=== PATIENT | female | born 1990 | race American Indian/Alaskan Native ===

== ENCOUNTER 2017-01-17 20:16 | Outpatient (CLI) | payer MEDICAID ==
[2017-01-17 20:34] VITALS: BP 120/61
[2017-01-17] MEDS ORDERED: LACTATED RINGERS 1,000 ML IV ONE (20:40)
[2017-01-17] MEDS ORDERED: LACTATED RINGERS 1,000 ML ONE (20:43)
[2017-01-17 21:09] LABS: Bilirubin,Urine NEG (Negative); Blood,Urine NEG (Negative); Ketones,Urine NEG (Negative); Leukocyte Esterase,Urine NEG (Negative); Nitrite,Urine NEG (Negative); Protein,Urine <15 mg/dL mg/dL (Negative); Urobilinogen,Urine < 2.0 mg/dL (<2.0)
[2017-01-17] MEDS ORDERED: TYLENOL PO ONE (21:30)
== END 2017-01-17 21:50 | disposition home or self-care (01) ==
LOC: TRG 20:16
PROVIDERS: ATTEND Obstetrics & Gynecology
DX: O62.9 Abnormality of forces of labor, unspecified (principal); Z3A.35 35 weeks gestation of pregnancy
CPT/HCPCS: 81001; 96360; J7120

== ENCOUNTER 2017-01-19 00:11 | Outpatient (CLI) | payer MEDICAID ==
[2017-01-19] MEDS ORDERED: LACTATED RINGERS 1,000 ML ONE (01:47)
[2017-01-19] MEDS ORDERED: LACTATED RINGERS 500 ML IV ONE (02:25)
--- NOTE | 2017-01-19 02:55 | Event Note ---
Date: 01/19/17 This patient presents complaining of uterine contractions. States she was informed yesterday that her baby was breech. She was evaluated 01/17/2017 at [facility] for uterine contractions where she was found to be closed thick and high. Today patient complains of contractions again. States she is only had 4 glasses of water today. She is resting comfortably no obvious evidence of distress. Cervix was closed thick and high. heart tracing was category 1. The initial toco that was placed did not appear to be functioning well and was changed to a different toco. Will allow patient home if no contractions. She's already received 1 L of IV fluid.
--- NOTE | 2017-01-19 02:59 | Discharge Summary ---
Providers - Providers Date of discharge: 01/19/17 Attending physician: CRYSTAL LLOYD Primary care physician: CRYSTAL LLOYD Hospitalization Condition: Good Disposition: DC-01 TO HOME OR SELFCARE Core Measure Documentation - Palliative Care Palliative Care/ Comfort Measures: Not Applicable - Core Measures Any of the following diagnoses?: none Exam - Constitutional Vitals: Temp Pulse Resp BP Pulse Ox 92 H 97 01/19/17 02:46 01/19/17 02:46 Plan Activity: other (no sex. No exercising. No lifting greater than 25 pounds nor standing for more than 2 hours without.) Weight Bearing Status: Non-Weight Bearing Diet: regular Special Instructions: no heavy lifting Follow up with: NORRIS VANESSA CNM [Advanced Practice Nurse] - 01/23/17 11:00 am ( Gerry)
== END 2017-01-19 03:40 | disposition home or self-care (01) ==
LOC: TRG 00:11
PROVIDERS: ATTEND Obstetrics & Gynecology
DX: O62.9 Abnormality of forces of labor, unspecified (principal); O47.03 False labor before 37 completed weeks of gestation, third trimester; Z3A.36 36 weeks gestation of pregnancy
CPT/HCPCS: 59025; 96360; 96361; J7120

== ENCOUNTER 2017-02-01 10:02 | Outpatient (CLI) | payer MEDICAID ==
[2017-02-01 11:50] VITALS: BP 115/75
[2017-02-01] MEDS ORDERED: VISTARIL PO PRN (11:50)
[2017-02-01] MEDS ORDERED: LACTATED RINGERS 1,000 ML IV SCH (12:00)
== END 2017-02-01 12:38 | disposition home or self-care (01) ==
LOC: TRG 10:02
PROVIDERS: ATTEND Obstetrics & Gynecology
DX: O47.1 False labor at or after 37 completed weeks of gestation (principal); Z3A.38 38 weeks gestation of pregnancy
CPT/HCPCS: Q0177

== ENCOUNTER 2021-02-23 06:14 | Inpatient (IN) | payer MEDICAID ==
[2021-02-23] MEDS ORDERED: LACTATED RINGERS 1,000 ML IV SCH (06:30)
[2021-02-23] MEDS ORDERED: LACTATED RINGERS 500 ML IV ONE (06:30)
[2021-02-23] MEDS ORDERED: BETAMET ACET/BETAMET NA PH 6 MG/ML INJ 5 ML MDV IM ONE ×2 (06:41→19:25)
--- NOTE | 2021-02-23 06:45 | History and Physical Report ---
History of Present Illness Date of examination: 02/23/21 Chief complaint: vaginal bleeding History of present illness: 30-year-old at 30w4d (CHERIE 05/01/21) [facility] in [place], [place] c/b Seizure d/o on Keppra (no recent seizures) send from the EMS with heavy vaginal bleeding that started at 5 AM with blood into the toilet bowl and on the pad. When arriving to the hospital no further blood was on the current peripad without active vaginal bleeding. Patient reports active fetus without leakage of fluid. Denies prior history of vaginal bleeding. Denies PIH symptoms. Past History Past Medical History: seizure (on meds, no recent seizures) Past Surgical History: section (x2) Family/Genetic History: none Social history: no significant social history - Obstetrical History Expected Date of Delivery: 05/01/21 Actual Gestation: 30 Week(s) 3 Day(s) : 5 Para: 4 Hx # Term Pregnancies: 4 Number of Living Children: 4 Medications and Allergies Allergies Allergy/AdvReac Type Severity Reaction Status Date / Time No Known Allergies Allergy Verified 12/15/14 04:50 Home Medications Medication Instructions Recorded Confirmed Last Taken Type levETIRAcetam [Keppra TAB] 500 mg PO BID 30 Days tablet 12/15/14 02/07/17 02/06/17 20:30 Rx Ferrous Sulfate [Feosol 325 MG tab] 325 mg PO BID #60 tablet 02/07/17 Unknown Rx Folic Acid [Folvite] 1 mg PO QDAY 02/07/17 02/07/17 02/07/17 History Ibuprofen [Motrin 800 MG tab] 800 mg PO Q6H PRN #30 tablet 02/07/17 Unknown Rx Vit-Fe Fumar-FA [ 1 tab PO QDAY 02/07/17 02/07/17 02/07/17 History Vitamin] oxyCODONE /ACETAMINOPHEN [Percocet 1 - 2 tab PO Q4H PRN #30 tablet 02/07/17 Unknown Rx 5/325 mg] Active Meds: Active Medications Betamethasone Acet/Betameth SodPhos (Betamet Acet/Betamet Na Ph 6 Mg/Ml Inj 5 Ml Mdv) 12 mg IM Q24HR DEYSI Lactated Ringer's (Lactated Ringers) 500 mls @ 999 mls/hr IV BOLUS ONE Stop: 02/23/21 07:00 Lactated Ringer's (Lactated Ringers) 1,000 mls @ 125 mls/hr IV DIRECT DEYSI Terbutaline Sulfate (Terbutaline 1 Mg/1 Ml Inj) 0.25 mg SUB-Q Q20MIN DEYSI Stop: 02/25/21 07:01 Review of Systems All systems: negative (expect HPI) - Physical Exam Abdomen: Positive: normal appearance, soft, normal bowel sounds Genitourinary (Female): Positive: other (blood at perineum, no active bleeding) Uterus: Positive: enlarged - Obstetrical FHR: category 1 Uterine Contraction Monitor Mode: External Results All other labs normal. Assessment and Plan - Patient Problems (1) Vaginal bleeding during Current Visit: Yes Status: Acute Plan to address problem: --Patient presented with reported heavy vaginal bleeding at home now with blood only at the perineum without any significant bleeding on the peripad with active fetus with category 1 tracing and irregular to no contractions. -- work-up, abruption labs ordered -Steroids for lung maturity --Continuous external monitoring --Ultrasound to evaluate for estimated weight, BPP, ERINN, placental location --C/s if indicated --Consult NICU --NPO for now --Obtain [facility] labs (2) Seizures Current Visit: No Status: Acute Plan to address problem: Continue Keppra 500mg BID
[2021-02-23] MEDS ORDERED: TERBUTALINE 1 MG/1 ML INJ SUB-Q SCH (07:00)
[2021-02-23 07:34] LABS: Basophils % (Auto) 0.2 % (0.0-1.8); Eosinophils # (Auto) 0.1 K/mm3 (0.0-0.4); Eosinophils % (Auto) 0.7 % (0.0-4.3); Hematocrit 31.1 % (30.3-42.9); Hemoglobin 10.5 gm/dl (10.1-14.3); Lymphocytes # (Auto) 2.1 K/mm3 (1.2-5.4); Lymphocytes % (Auto) 17.1 % (13.4-35.0); Mean Corpuscular HGB Conc 34 % (30-34); Mean Corpuscular Volume 92 fl (79-97); Monocytes # (Auto) 1.1 K/mm3 (0.0-0.8); Monocytes % (Auto) 9.3 % (0.0-7.3); Platelet Count 308 K/mm3 (140-440); Red Blood Count 3.39 M/mm3 (3.65-5.03); Red Cell Distribution Width 13.6 % (13.2-15.2)
--- NOTE | 2021-02-23 07:35 | Ultrasound Report ---
Limited OB Ultrasound Biophysical profile HISTORY: r/o aburption ptl. TECHNIQUE: Grayscale and color imaging performed. COMPARISON: No recent comparison exam FINDINGS: There is a single intrauterine gestation with breech presentation. ERINN is 17 cm. Placenta is seen ant eriorly. Heart rate is 147 bpm. No placental abruption identified. No evidence of placenta previa. Overall EGA by ultrasound is 30 weeks 6 days with delivery date of 04/28/2021. This closely correlate s with the clinical gestational age of 30 weeks and 3 days. Estimated weight is 1664 g. On biophysical profile, the fetus received a score of 2 out of 2 for breathing, movement, posture/ton e, and ERINN. Total score was 8 out of 8. IMPRESSION: 1. Single viable intrauterine gestation as above with no placental abruption identified on this exam. 2. Normal biophysical profile. Signer Name: Ian Mcallister MD Signed: 02/23/2021 7:31 AM Workstation Name: [id number]
[2021-02-23 07:43] LABS: INR 0.95 (0.87-1.13)
[2021-02-23 07:44] LABS: Partial Thromboplastin Time 25.8 Sec. (24.2-36.6)
[2021-02-23 07:51] LABS: Alanine Aminotransferase 11 units/L (7-56); Albumin 3.3 g/dL (3.9-5); Blood Urea Nitrogen 5 mg/dL (7-17); Calcium 9.2 mg/dL (8.4-10.2); Hemolysis Index 1
[2021-02-23 07:57] LABS: BUN/Creatinine Ratio 13
[2021-02-23 08:14] LABS: Hepatitis C Virus Antibody Non-Reactive (NonReactive)
--- NOTE | 2021-02-23 09:03 | Progress Note ---
Assessment and Plan WATCH FOR SIGNS OF BLEEDING. MAY NEED REPEAT C/S. - Patient Problems (1) Vaginal bleeding during Current Visit: Yes Status: Acute (2) Malpresentation of fetus Current Visit: Yes Status: Acute Qualifiers: malpresentation type: breech Fetus number: single or unspecified fetus Qualified Code(s): O32.1XX0 - Maternal care for breech presentation, not applicable or unspecified Subjective Date of service: 02/23/21 Principal diagnosis: 30 wk iup, vag bleeding, breech ,prev c/s x 2 Interval history: see h&p. Objective - Constitutional Vitals: Vital Signs - 12hr 02/23/21 02/23/21 02/23/21 06:47 07:53 07:58 Temperature Pulse Rate 99 H 99 H 105 H Respiratory Rate Blood Pressure 121/67 Blood Pressure [Right] O2 Sat by Pulse 97 97 Oximetry 02/23/21 02/23/21 02/23/21 07:59 08:03 08:08 Temperature 98.8 F Pulse Rate 106 H 109 H 101 H Respiratory 14 Rate Blood Pressure Blood Pressure 121/67 [Right] O2 Sat by Pulse 96 97 97 Oximetry 02/23/21 02/23/21 02/23/21 08:10 08:13 08:18 Temperature Pulse Rate 102 H 105 H Respiratory Rate Blood Pressure 133/78 Blood Pressure [Right] O2 Sat by Pulse 97 96 Oximetry 02/23/21 02/23/21 02/23/21 08:23 08:25 08:28 Temperature Pulse Rate 105 H 96 H 101 H Respiratory Rate Blood Pressure 114/53 Blood Pressure [Right] O2 Sat by Pulse 97 97 Oximetry 02/23/21 02/23/21 02/23/21 08:33 08:38 08:40 Temperature Pulse Rate 105 H 100 H 100 H Respiratory Rate Blood Pressure 113/56 Blood Pressure [Right] O2 Sat by Pulse 97 97 Oximetry 02/23/21 02/23/21 02/23/21 08:43 08:48 08:53 Temperature Pulse Rate 102 H 106 H 109 H Respiratory Rate Blood Pressure Blood Pressure [Right] O2 Sat by Pulse 95 97 97 Oximetry 02/23/21 08:55 Temperature Pulse Rate 103 H Respiratory Rate Blood Pressure 115/66 Blood Pressure [Right] O2 Sat by Pulse Oximetry General appearance: Present: no acute distress, well-nourished - Genitourinary Female genitourinary: other (,BLOOD CLOT IN VAGINA, CX IS 2 CMS, 50%, -4, BREECH.) - Labs CBC & Chem 7: 02/23/21 07:10 02/23/21 07:10 Labs: Abnormal lab results 02/23/21 02/23/21 02/23/21 Range/Units 07:10 07:10 07:10 WBC 12.2 H (4.5-11.0) K/mm3 RBC 3.39 L (3.65-5.03) M/mm3 [place] % (Auto) 9.3 H (0.0-7.3) % [place] # (Auto) 1.1 H (0.0-0.8) K/mm3 Seg Neutrophils % 72.7 H (40.0-70.0) % Seg Neutrophils # 8.9 H (1.8-7.7) K/mm3 Fibrinogen 564 H (211-480) mg/dl D-Dimer 764.65 H (0-234) ng/mlDDU Sodium 132 L (137-145) mmol/L Potassium 3.4 L (3.6-5.0) mmol/L BUN 5 L (7-17) mg/dL Creatinine 0.4 L (0.6-1.2) mg/dL Glucose 139 H (65-100) mg/dL Albumin 3.3 L (3.9-5) g/dL Medications & Allergies - Medications Allergies/Adverse Reactions: Allergies No Known Allergies Allergy (Verified 12/15/14 04:50) Home Medications: Home Medications Medication Instructions Recorded Confirmed Last Taken Type levETIRAcetam [Keppra TAB] 500 mg PO BID 30 Days tablet 12/15/14 02/07/17 02/06/17 20:30 Rx Ferrous Sulfate [Feosol 325 MG tab] 325 mg PO BID #60 tablet 02/07/17 Unknown Rx Folic Acid [Folvite] 1 mg PO QDAY 02/07/17 02/07/17 02/07/17 History Ibuprofen [Motrin 800 MG tab] 800 mg PO Q6H PRN #30 tablet 02/07/17 Unknown Rx Vit-Fe Fumar-FA [ 1 tab PO QDAY 02/07/17 02/07/17 02/07/17 History Vitamin] oxyCODONE /ACETAMINOPHEN [Percocet 1 - 2 tab PO Q4H PRN #30 tablet 02/07/17 Unknown Rx 5/325 mg] Active Medications: Generic Name Dose Route Start Last Admin Trade Name Freq PRN Reason Stop Dose Admin Betamethasone Acet/Betameth SodPhos 12 mg 02/23/21 10:00 Betamet Acet/Betamet Na Ph 6 Mg/Ml Inj 5 Ml Mdv IM Q24HR DEYSI Lactated Ringer's 1,000 mls @ 125 mls/hr 02/23/21 06:30 Lactated Ringers IV DIRECT DEYSI Terbutaline Sulfate 0.25 mg 02/23/21 07:00 Terbutaline 1 Mg/1 Ml Inj SUB-Q 02/25/21 07:01 Q20MIN DEYSI
[2021-02-23] MEDS ORDERED: fentaNYL 100 MCG/2 ML INJ IV PRN (09:30)
[2021-02-23] MEDS ORDERED: BETAMET ACET/BETAMET NA PH 6 MG/ML INJ 5 ML MDV IM SCH (10:00)
[2021-02-23] MEDS ORDERED: NalbUPHINE 10 MG/1 ML INJ IV PRN (10:00)
[2021-02-23] MEDS ORDERED: ACETAMINOPHEN 325 MG TAB PO PRN (10:00)
[2021-02-23 10:38] LABS: Bilirubin,Urine NEG (Negative); Blood,Urine NEG (Negative); Color,Urine Straw (Yellow); Mucus,Urine FEW /HPF; Protein,Urine <15 mg/dL mg/dL (Negative); Urobilinogen,Urine < 2.0 mg/dL (<2.0); WBC,Urine < 1.0 /HPF (0.0-6.0)
[2021-02-23 10:46] LABS: Amphetamine Screen,Urine Negative; Benzodiazepines Screen,Urine Negative; Cannabinoid Screen,Urine Negative; Cocaine Screen,Urine Negative; Methadone Screen,Urine Negative; Opiate Screen,Urine Negative
[2021-02-23] MEDS: NIFEdipine*For Tocolysis only* 10 MG CAPSULE PO ONE ×2 (11:02→11:27)
[2021-02-23 11:38] LABS: RBC,Urine < 1.0 /HPF (0.0-6.0)
[2021-02-23] MEDS ORDERED: NIFEdipine*For Tocolysis only* 10 MG CAPSULE PO SCH (17:00)
--- NOTE | 2021-02-23 18:13 | Consultation ---
Consult Note - Parent Education I met with parent(s) and discussed the following:: Need for NICU admission, Poss ible need for intubation and surfactant or other resp support, Temperature regulation, Head ultrasounds to evaluate IVH, Eye exams for ROP screening, Possible need for IV fluids/TPN and IV antibiotics, Possible need for umbilical lines, Importance of providing breast milk & encouraged pumping aft delivery, Donor breast milk if baby meets criteria after , Slow feeding advancement and monitoring of tolerance. NG/OG feeds, Need to monitor for jaundice, Data for survival & survival without significant co-morbidities Parent(s) demonstrated understanding of all the information:: Yes Assessment and Plan - Assessment Gestation:: 30.4 Estimated Weight: 1664g - Plan Plan: Agree with Mag & steroids Will attend delivery Please call NICU with questions
[2021-02-23] MEDS ORDERED: MAGNESIUM SULFATE 40GM/1000ML 40 GM/1,000 ML BAG IV ONE (18:19)
--- NOTE | 2021-02-23 18:39 | Event Note ---
Date: 02/23/21 I called and spoke with Dr. James concerning this pt with complete previa. Pt then evaluated and noted to have no active bleeding and category I FHR. Will give mag sulfate for tocolysis and neuroprotection and give 2nd dose of steroid now. Verbal consult done to Dr. Escalante, high risk doctor from [facility] and he agrees with no abruption noted on ultrasound and coags stable with high fibrogen, D- Dimer and INR 0.9. Will follow CBC trends. Will deliver for non-reassuring FHR and active vaginal bleeding. Will given Amp for GBS prophylaxis until pt delivered. Pt currently with ctx every 3-7mins, abdomen soft between contractions, menendez cath with urine output more than 75cc/hr. pt agrees to blood transfusion during surgery if needed. Report of ultrasound with complete previa, breech and ERINN 17cm; NICU staff already did consult with pt if delivery imminent. All questions encouraged and answered.
[2021-02-23] MEDS ORDERED: MAGNESIUM SULFATE 40GM/1000ML 40 GM/1,000 ML BAG IV SCH (19:00)
[2021-02-23] MEDS ORDERED: LIDOCAINE MPF (2%) 20 MG/1 ML VIAL 5 ML ONE (20:00)
[2021-02-23 20:29] LABS: Basophils % (Auto) 0.2 % (0.0-1.8); Hematocrit 30.1 % (30.3-42.9); Hemoglobin 10.1 gm/dl (10.1-14.3); Lymphocytes # (Auto) 1.6 K/mm3 (1.2-5.4); Lymphocytes % (Auto) 11.7 % (13.4-35.0); Mean Corpuscular HGB Conc 33 % (30-34); Mean Corpuscular Volume 93 fl (79-97); Monocytes # (Auto) 0.5 K/mm3 (0.0-0.8); Monocytes % (Auto) 3.4 % (0.0-7.3); Platelet Count 333 K/mm3 (140-440); Red Blood Count 3.24 M/mm3 (3.65-5.03); Red Cell Distribution Width 13.5 % (13.2-15.2)
[2021-02-23] MEDS ORDERED: KETAMINE/STERILE WATER 50 MG/ML SYRINGE ONE (20:40)
[2021-02-23] MEDS ORDERED: propofoL 200 MG/20 ML VIAL IV ONE (20:40)
[2021-02-23] MEDS ORDERED: WATER FOR IRRIG STERILE 1,500 ML BOTTLE IR ONE (20:40)
[2021-02-23] MEDS ORDERED: SODIUM CHLORIDE 0.9% IRR 1,500 ML BOTTLE IR ONE (20:40)
[2021-02-23] MEDS ORDERED: SUCCINYLCHOLINE CHLORIDE 200 MG/10 ML INJ MDV ONE (20:40)
[2021-02-23] MEDS ORDERED: SODIUM CHLORIDE 0.9% 500 ML 500 ML IV ONE (20:46)
[2021-02-23] MEDS ORDERED: ceFAZolin 1 GM VIAL ONE ×2 (20:49→20:50)
[2021-02-23] MEDS ORDERED: OXYTOCIN DRIP 30,000 MILLIUNITS/500 ML BAG IV ONE ×2 (20:51)
[2021-02-23] MEDS ORDERED: ROCURONIUM 50 MG/5 ML INJ IV ONE (20:54)
[2021-02-23] MEDS ORDERED: PHENYLEPHRINE/NS 1,000 MCG/10 ML SYRINGE (OR USE) IV ONE ×2 (20:56→22:07)
[2021-02-23] MEDS ORDERED: SODIUM CHLORIDE 0.9% 500 ML 500 ML ONE (21:05)
[2021-02-23] MEDS ORDERED: ONDANSETRON 4 MG/2 ML INJ ONE (21:32)
[2021-02-23] MEDS ORDERED: HYDROmorphone 1 MG/1 ML INJ ONE (21:50)
[2021-02-23] MEDS ORDERED: levETIRAcetam 500 MG TAB PO SCH (22:00)
[2021-02-23] MEDS ORDERED: miSOPROStol 200 MCG TAB ONE (22:18)
[2021-02-23] MEDS ORDERED: miSOPROStol 200 MCG TAB PR ONE (22:30)
--- NOTE | 2021-02-23 22:49 | XRay Report ---
ABDOMEN 1 VIEW INDICATION / CLINICAL INFORMATION: STAT ... Instrument Count. COMPARISON: None available. FINDINGS: No abnormal radiopaque foreign body identified within the single provided frontal view of the abdomen . Signer Name: Danielito Zapata MD Signed: 02/23/2021 10:45 PM Workstation Name: [id number]
--- NOTE | 2021-02-23 23:09 | Anesthesia Day of Surgery ---
Anesthesia Day of Surgery - Day of Surgery Patient Examined: Yes Patient H&P Reviewed: Yes Patient is NPO: Yes Beta Blockers: No Cardiac Clearance: No Pulmonary Clearance: No Narciso's Test: Negative
--- NOTE | 2021-02-23 23:10 | Anesthesia Consultation ---
Anesthesia Consult and Med Hx Date of service: 02/23/21 - Airway Anesthetic Teeth Evaluation: Poor ROM Head & Neck: Adequate Mental/Hyoid Distance: Adequate Mallampati Class: Class II Intubation Access Assessment: Probably Good - Pulmonary Exam CTA: Yes - Cardiac Exam Cardiac Exam: RRR - Pre-Operative Health Status ASA Pre-Surgery Classification: ASA3, Emergency Proposed Anesthetic Plan: General - Pulmonary Hx Smoking: No Hx Asthma: No Hx Respiratory Symptoms: No SOB: No COPD: No Home Oxygen Therapy: No Hx Pneumonia: No Hx Sleep Apnea: No - Cardiovascular System Hx Hypertension: No Hx Coronary Artery Disease: No Hx Heart Attack/AMI: No Hx Angina: No Hx Percutaneous Transluminal Coronary Angioplasty (PTCA): No Hx Cardia Arrhythmia: No Hx Pacemaker: No Hx Internal Defibrillator: No Hx Valvular Heart Disease: No Hx Heart Murmur: No Hx Peripheral Vascular Disease: No - Central Nervous System Hx Neuromuscular Disorder: No Hx Seizures: Yes (on medication) CVA: No Hx Back Pain: No Hx Psychiatric Problems: No - Gastrointestinal Hx Ulcer: No Hx Gastroesophageal Reflux Disease: Yes - Endocrine Hx Renal Disease: No Hx End Stage Renal Disease: No Hx Cirrhosis: No Hx Liver Disease: No Hx Insulin Dependent Diabetes: No Hx Non-Insulin Dependent Diabetes: No Hx Thyroid Disease: No Hx Hypothyroidism: No Hx Hyperthyroidism: No - Hematic Hx Anemia: No Hx Sickle Cell Disease: No - Other Systems Hx Alcohol Use: No Hx Substance Use: No Hx Cancer: No Hx Obesity: No
[2021-02-23] MEDS ORDERED: WITCH HAZEL/ GLYCERIN PAD TP PRN (23:11)
[2021-02-23] MEDS ORDERED: NALOXONE 0.4 MG/1 ML INJ IV PRN ×2 (23:11→23:15)
[2021-02-23] MEDS ORDERED: LANOLIN/ZINC/DIMETHICONE (LANSINOH) 7 GM TP PRN (23:11)
--- NOTE | 2021-02-23 23:11 | Event Note ---
Date: 02/23/21 Late entry for decision for emergent c/section due to active vag bleeding. Mag sulfate turned off and pt rushed via stretcher to the OR. NICU and Anesthesiologist notified. Plan of care discussed with patient.
[2021-02-23] MEDS ORDERED: IBUPROFEN 600 MG TAB PO PRN (23:13)
[2021-02-23] MEDS ORDERED: MORPHINE 4 MG/1 ML INJ IV PRN ×2 (23:13→23:15)
[2021-02-23] MEDS ORDERED: SIMETHICONE 80 MG CHEW TAB PO PRN (23:13)
[2021-02-23] MEDS ORDERED: MAGNESIUM HYDROXIDE (MOM) ORAL LIQD UDC PO PRN (23:13)
[2021-02-23] MEDS ORDERED: HYDROCORTISONE 25 MG RECTAL SUPP PR PRN (23:13)
[2021-02-23] MEDS ORDERED: HYDROmorphone 1 MG/1 ML INJ IV PRN ×2 (23:15)
[2021-02-23] MEDS ORDERED: ONDANSETRON 4 MG/2 ML INJ IV PRN (23:15)
[2021-02-23] MEDS ORDERED: GENTAMICIN 400 MG in SODIUM CHLORIDE 0.9% 100 ML IV SCH (23:30)
[2021-02-23] MEDS ORDERED: OXYTOCIN DRIP 30 UNITS/500 ML BAG IV SCH (23:45)
[2021-02-23] MEDS ORDERED: AMPICILLIN/NS 2 GM/100 ML 2 GM/100 ML BAG IV SCH (23:45)
--- NOTE | 2021-02-23 23:59 | Procedure Note ---
OB Delivery Note - Delivery Date of Delivery: 02/23/21 Surgeon: PAULINE CONCEPCION Estimated blood loss: other (1600cc) - Section Preop diagnosis: repeat , other (complete previa) Postop diagnosis: same (and previa with partial separation) section procedure: repeat low transverse Complications: transfusion, intra-op hemorrhage, uterine atony, other (possible 2x2cm placental tissue absent from previa) Narrative: Date: 02/23/21 Surgeon: Pauline Concepcion MD Preop Dx: IUP at 30.3wks, no care, H/O C/section x2, complete placenta previa, active hemorrhage Postop Dx: same Procedure : Emergent repeat section Anesthesia: General Intake: 1800cc crystalloids and 2units PRBC uncrossmatched blood Output: 300cc clear urine EBL:1600cc After the risks, benefits and alternatives of procedure discussed, patient gave verbal consents and was taken to the operating room. Written consents obtained post procedure. Pt was given General anesthesia. Betadine solution placed on abdomen and Keenan catheter already in place and draining clear urine. Pt was given prophylactic antibiotic per protocol and time out was done. Pfannenstiel skin incision was made and taken sharply to the fascia, extended sharply and then intraperitoneal cavity entered and manually extended with good visualization of the bladder. Lower uterine segment then entered transversely and thru engorged vessels and infant delivered, with large amount of clots with previa already . Infant delivered thru large clots, vertex presentation, cord clamped and cut and baby handed off to the waiting pediatricians. No umbilical cord gas was obtained with active hemorrhage. The placenta was manually removed and but lower uterine segment continued to bleed, pt not stable. I called for assistance from any physician and FOB counseled that there may be a possibility of his having a hysterectomy for live saving measures. He sounded devastated and unclear that his would not want to have any more children. Anesthesiologist asked to give transfusion and 2units PRBC given, uterine incision closed with 0-vicryl running locked suture and multiple interrupted figure of 8 sutures placed along lower uterine segment. Bilateral uterine artery ligation done with good effect. Uterine incision extended using bandage scissors. Good hemostasis and pt now stable. The gutters were cleared of clots and debri and anterior peritoneum closed using 3-0 vicryl suture. Rectus muscle on the left absent to lower abdomen. Rectus fascia closed with 0-vicryl suture in a continuous fashion and subcutaneous tissue copiously irrigated with normal saline and re-approximated using 3-0 vicryl suture. Good hemostasis remains. The skin was closed with 4-0 monocryl suture and steristrips placed with pressure dressing. Sponge, lap, instrument and needle counts x2 were normal. Patient tolerated the procedure w ell and was taken to recovery room stable. Cytotec 1000mcg per rectum given. Discussed with patient in recovery room her procedure and also her FOB while he was visiting baby in NICU. Will plan on interventional procedure later today if pt still with bleeding. Pt may also need future curettage if fragment of placenta remains. Tissue very friable. Findings: Viable male , APGARS [8] and weight 1630g. Lower uterine segment with engorged vessel, normal tubes and ovaries bilaterally. Pathology: placent - Infant A at 1 minute: 3 at 5 minutes: 6 (APGARS 8; wt 1630g; previa already )
[2021-02-24] MEDS ORDERED: SODIUM CHLORIDE 0.9% 500 ML 500 ML ONE (02:06)
[2021-02-24 05:27] LABS: Mean Corpuscular HGB Conc 34 % (30-34); Platelet Count 263 K/mm3 (140-440)
[2021-02-24 05:34] LABS: Hematocrit 24.5 % (30.3-42.9); Hemoglobin 8.2 gm/dl (10.1-14.3); Mean Corpuscular Volume 91 fl (79-97); Red Cell Distribution Width 14.5 % (13.2-15.2)
[2021-02-24 08:35] LABS: Myelocytes # (Manual) 0.4 K/mm3; Total Cells Counted 100
[2021-02-24 08:36] LABS: Platelet Estimate Consistent w Auto; Tear Drop Cells 1+; Toxic Granulation 1+
[2021-02-24] MEDS: oxyCODONE /ACETAMINOPHEN 5-325MG TAB PO PRN ×2 (09:17→16:31)
[2021-02-24] MEDS: FERROUS SULFATE 325 MG TAB PO SCH (11:55)
[2021-02-24] MEDS: levETIRAcetam 500 MG TAB PO SCH ×2 (11:56→23:58)
--- NOTE | 2021-02-24 14:38 | Progress Note ---
Assessment and Plan A: /postop day 1 S/P repeat C/S. Leukocytosis (blood cultures pending, on triple antibiotics). Abdominal distention. Anemia. Tachycardia. Seizure disorder (on meds). P: Continue clear liquid diet until tomorrow. Repeat CBC has been ordered. EKG, jackson culture, chest x-ray ordered. Continue Ampicillin, Gentamicin, and Clindamycin. ID consult. Consulted with Dr. Varela re: this patient (abdominal distention, tachycardia, and leukocytosis). Iron supplementation when tolerating regular diet. Subjective - Subjective Date of service: 02/24/21 Principal diagnosis: /postop day 1 S/P repeat C/S Interval history: Blood cultures pending. Urine culture shows no growth. Patient reports: pain well controlled, no flatus, no nauseated Objective - Vital Signs Latest vital signs: Vital Signs Temp Pulse Resp BP BP Pulse Ox Pulse Ox 02/24/21 09:30 98.0 F 116 H 18 137/87 100 100 02/24/21 09:17 16 02/24/21 08:39 126 H 82 L 02/24/21 08:37 110 H 99 02/24/21 08:32 121 H 98 02/24/21 08:27 119 H 100 02/24/21 08:22 121 H 98 02/24/21 08:17 114 H 99 02/24/21 08:12 117 H 98 02/24/21 08:07 122 H 99 02/24/21 08:02 117 H 99 02/24/21 07:57 117 H 99 02/24/21 07:52 122 H 99 02/24/21 07:47 116 H 99 02/24/21 07:42 124 H 99 02/24/21 07:37 121 H 98 02/24/21 07:32 122 H 99 02/24/21 07:27 125 H 99 02/24/21 07:22 121 H 99 02/24/21 07:17 125 H 99 02/24/21 07:12 124 H 99 02/24/21 07:07 122 H 99 02/24/21 07:04 125 H 130/67 02/24/21 07:02 122 H 99 02/24/21 07:00 99.1 F 18 99 02/24/21 06:57 125 H 99 02/24/21 06:52 126 H 100 02/24/21 06:47 122 H 99 02/24/21 06:42 124 H 99 02/24/21 06:37 119 H 99 02/24/21 06:32 118 H 99 02/24/21 06:27 118 H 99 02/24/21 06:22 117 H 99 02/24/21 06:17 120 H 99 02/24/21 06:13 121 H 140/79 02/24/21 06:12 118 H 100 02/24/21 06:07 118 H 100 02/24/21 06:02 124 H 100 02/24/21 05:57 115 H 99 02/24/21 05:52 113 H 99 02/24/21 05:47 118 H 99 02/24/21 05:43 116 H 116/65 02/24/21 05:42 116 H 99 02/24/21 05:37 114 H 98 02/24/21 05:32 117 H 98 02/24/21 05:27 114 H 99 02/24/21 05:22 117 H 99 02/24/21 05:17 117 H 99 02/24/21 05:13 114 H 118/60 02/24/21 05:12 114 H 99 02/24/21 05:07 116 H 99 02/24/21 05:02 107 H 99 02/24/21 04:57 129 H 98 02/24/21 04:52 120 H 99 02/24/21 04:47 117 H 99 02/24/21 04:43 115 H 121/62 02/24/21 04:42 119 H 100 02/24/21 04:37 124 H 99 02/24/21 04:32 124 H 99 02/24/21 04:27 116 H 99 02/24/21 04:22 125 H 99 02/24/21 04:17 120 H 99 02/24/21 04:13 118 H 117/60 02/24/21 04:12 116 H 99 02/24/21 04:07 128 H 99 02/24/21 04:02 118 H 100 02/24/21 03:57 119 H 98 02/24/21 03:52 128 H 100 02/24/21 03:47 119 H 99 02/24/21 03:43 117 H 120/60 02/24/21 03:42 117 H 99 02/24/21 03:37 118 H 99 02/24/21 03:32 119 H 98 02/24/21 03:27 119 H 99 02/24/21 03:22 128 H 99 02/24/21 03:17 118 H 98 02/24/21 03:13 112 H 114/60 02/24/21 03:12 114 H 99 02/24/21 03:07 112 H 99 02/24/21 03:02 110 H 99 02/24/21 02:57 111 H 99 02/24/21 02:52 112 H 99 02/24/21 02:47 113 H 99 02/24/21 02:43 111 H 112/63 02/24/21 02:42 111 H 98 02/24/21 02:37 113 H 100 02/24/21 02:32 120 H 97 02/24/21 02:27 111 H 100 02/24/21 02:22 115 H 99 02/24/21 02:17 114 H 98 02/24/21 02:13 112 H 117/66 02/24/21 02:12 111 H 100 02/24/21 02:07 111 H 99 02/24/21 02:02 113 H 98 02/24/21 01:57 118 H 99 02/24/21 01:52 110 H 99 02/24/21 01:47 113 H 100 02/24/21 01:43 111 H 103/62 02/24/21 01:42 110 H 98 02/24/21 01:37 109 H 99 02/24/21 01:32 109 H 99 02/24/21 01:27 107 H 99 02/24/21 01:22 104 H 100 02/24/21 01:17 105 H 100 02/24/21 01:13 104 H 111/61 02/24/21 01:12 103 H 100 02/24/21 01:07 103 H 100 02/24/21 01:02 108 H 100 02/24/21 01:00 18 02/24/21 00:57 105 H 100 02/24/21 00:52 109 H 100 02/24/21 00:47 108 H 99 02/24/21 00:43 108 H 105/55 02/24/21 00:42 109 H 98 02/24/21 00:00 101 H 19 101/57 100 98 02/23/21 23:45 97 H 15 92/50 100 09/21 23:30 97 H 22 80/42 100 09/ 23:15 103 H 18 89/44 100 02/23/21 22:58 121 H 16 82/60 100 02/23/21 22:50 121 H 21 128/87 100 02/23/21 22:41 97.8 F 116 H 21 151/93 98 02/23/21 20:34 117 H 97 02/23/21 20:29 113 H 96 02/23/21 20:24 114 H 96 02/23/21 20:19 111 H 96 02/23/21 20:14 110 H 96 02/23/21 20:11 105 H 114/53 02/23/21 20:09 106 H 97 02/23/21 20:04 102 H 96 02/23/21 19:59 114 H 97 02/23/21 19:54 104 H 96 02/23/21 19:49 110 H 96 02/23/21 19:44 105 H 96 02/23/21 19:41 107 H 104/43 02/23/21 19:39 108 H 96 02/23/21 19:34 113 H 96 02/23/21 19:29 106 H 97 02/23/21 19:24 109 H 97 02/23/21 19:19 113 H 97 02/23/21 19:14 118 H 97 02/23/21 19:09 114 H 96 02/23/21 19:04 116 H 96 02/23/21 18:59 110 H 95 02/23/21 18:54 115 H 97 02/23/21 18:49 91 H 96 02/23/21 18:44 113 H 96 21 18:39 89 97 02/23/21 18:34 114 H 97 21 18:29 113 H 97 02/23/21 18:24 108 H 96 02/23/21 18:19 112 H 96 02/23/21 18:14 113 H 97 02/23/21 18:09 105 H 96 02/23/21 18:04 114 H 97 02/23/21 17:59 113 H 96 02/23/21 17:54 108 H 96 02/23/21 17:49 105 H 98 02/23/21 17:44 115 H 96 02/23/21 17:39 108 H 96 02/23/21 17:34 103 H 96 02/23/21 17:29 105 H 97 02/23/21 17:25 98.4 F 16 97 02/23/21 17:24 105 H 97 02/23/21 17:19 109 H 97 02/23/21 17:14 110 H 96 02/23/21 17:11 109 H 117/61 02/23/21 17:09 110 H 97 02/23/21 17:04 108 H 97 02/23/21 16:59 111 H 96 02/23/21 16:54 113 H 94 02/23/21 16:49 109 H 96 02/23/21 16:44 110 H 96 02/23/21 16:39 109 H 97 02/23/21 16:34 106 H 97 02/23/21 16:29 115 H 96 02/23/21 16:24 99 H 97 02/23/21 16:19 107 H 97 02/23/21 16:14 110 H 95 02/23/21 16:09 107 H 96 02/23/21 16:04 100 H 96 02/23/21 15:59 106 H 97 02/23/21 15:54 106 H 95 02/23/21 15:49 94 H 95 02/23/21 15:44 103 H 98 02/23/21 15:41 111 H 111/62 02/23/21 15:39 102 H 97 02/23/21 15:35 98.5 F 105 H 18 136/63 98 02/23/21 15:34 103 H 95 02/23/21 15:33 97 H 94 02/23/21 15:28 98 H 97 02/23/21 15:24 106 H 97 02/23/21 15:19 105 H 97 02/23/21 15:14 105 H 98 02/23/21 15:09 108 H 97 02/23/21 15:04 83 98 02/23/21 14:59 101 H 97 02/23/21 14:54 101 H 97 02/23/21 14:49 111 H 96 02/23/21 14:44 99 H 97 02/23/21 14:39 106 H 96 Intake and Output 02/23/21 02/24/21 02/24/21 23:59 07:59 15:59 Intake Total 3600 Output Total 1300 Balance 2300 Intake: IV 3600 Output: Urine 1300 Indwelling Catheter 400 Uretheral ([place]) 300 Other: Total, Output Amount 200 # Voids Indwelling Catheter 400 Estimated Blood Loss 1,600 - Exam Lungs: Present: Clear to auscultation Abdomen: Present: soft, distention, normal bowel sounds. Absent: tenderness, guarding, rigidity Uterus: Present: normal, firm, fundal height at umbilicus. Absent: bogginess, tenderness Extremities: Absent: tenderness, edema Incision: Present: dry, dressed - Labs Labs: Abnormal lab results 02/23/21 02/23/21 02/24/21 Range/Units 07:17 20:07 04:53 WBC 13.7 H 40.1 H* (4.5-11.0) K/mm3 RBC 3.24 L 2.70 L (3.65-5.03) M/mm3 Hgb 8.2 L (10.1-14.3) gm/dl Hct 30.1 L 24.5 L (30.3-42.9) % Lymph % (Auto) 11.7 L (13.4-35.0) % Seg Neutrophils % 84.7 H (40.0-70.0) % Seg Neuts % (Manual) 94.0 H (40.0-70.0) % Lymphocytes % (Manual) 1.0 L (13.4-35.0) % Seg Neutrophils # 11.6 H (1.8-7.7) K/mm3 Seg Neutrophils # Man 37.7 H (1.8-7.7) K/mm3 Lymphocytes # (Manual) 0.4 L (1.2-5.4) K/mm3 Monocytes # (Manual) 1.6 H (0.0-0.8) K/mm3 Crossmatch See Detail
--- NOTE | 2021-02-24 16:09 | XRay Report ---
CHEST 2 VIEWS INDICATION / CLINICAL INFORMATION: Tachycardia, leukocytosis. COMPARISON: None available. FINDINGS: SUPPORT DEVICES: None. HEART / MEDIASTINUM: No significant abnormality. LUNGS / PLEURA: No significant pulmonary or pleural abnormality. No pneumothorax. ADDITIONAL FINDINGS: No significant additional findings. IMPRESSION: 1. No acute findings. Signer Name: Jon Carl MD Signed: 02/24/2021 4:04 PM Workstation Name: [id number]
[2021-02-24 17:54] LABS: Hematocrit 21.5 % (30.3-42.9); Hemoglobin 7.1 gm/dl (10.1-14.3); Mean Corpuscular HGB Conc 33 % (30-34); Mean Corpuscular Volume 92 fl (79-97); Platelet Count 220 K/mm3 (140-440); Red Blood Count 2.33 M/mm3 (3.65-5.03); Red Cell Distribution Width 14.6 % (13.2-15.2)
[2021-02-24 20:57] LABS: Platelet Estimate Consistent w Auto; Total Cells Counted 100
--- NOTE | 2021-02-24 22:34 | Post Anesthesia Evaluation ---
- Post Anesthesia Evaluation Patient Participated: Yes Airway Patent: Yes Stable Respiratory Function: Yes Nausea/Vomiting: No Temp > 96.8F: Yes Pain Manageable: Yes Adequeate Hydration: Yes Anesthesia Complications: No Block Receding Appropriately: Yes Patient on Ventilator: No
[2021-02-24] MEDS: IBUPROFEN 800 MG TAB PO PRN (23:57)
[2021-02-25] MEDS: oxyCODONE /ACETAMINOPHEN 5-325MG TAB PO PRN (05:04)
[2021-02-25] MEDS: IBUPROFEN 800 MG TAB PO PRN ×2 (07:30→17:38)
--- NOTE | 2021-02-25 08:49 | Progress Note ---
Subjective - Subjective Date of service: 02/25/21 Principal diagnosis: /postop day 1 S/P repeat C/S Interval history: PPD#2 leukocytosis improved: continue abx tachycardia: resolved afebrile PE benign Labs: stable continue routine PP care Guanakito Varela MD Objective - Vital Signs Latest vital signs: Vital Signs Temp Pulse Resp BP BP Pulse Ox Pulse Ox 02/25/21 05:04 97 02/25/21 04:00 98.8 F 74 18 109/69 02/25/21 03:30 98 02/25/21 02:10 97 02/25/21 00:00 98.6 F 72 18 112/68 02/24/21 23:55 97 02/24/21 22:20 98 02/24/21 20:10 97 02/24/21 20:00 98.0 F 96 H 18 131/65 100 02/24/21 16:31 12 02/24/21 15:05 98.2 F 100 H 14 138/80 96 02/24/21 09:30 98.0 F 116 H 18 137/87 100 100 02/24/21 09:17 16 Intake and Output 02/24/21 02/25/21 02/25/21 23:59 07:59 15:59 Intake Total 500 200 Output Total 1800 1000 Balance -1300 -800 Intake: Oral 200 200 Intake, Free Water 300 Output: Urine 1800 1000 Indwelling Catheter 1800 1000 Other: Total, Intake Amount 200 200 Total, Output Amount 900 1000 - Labs Labs: Abnormal lab results 02/23/21 02/24/21 Range/Units 07:17 17:14 WBC 26.3 H (4.5-11.0) K/mm3 RBC 2.33 L (3.65-5.03) M/mm3 Hgb 7.1 L (10.1-14.3) gm/dl Hct 21.5 L (30.3-42.9) % Seg Neuts % (Manual) 92.0 H (40.0-70.0) % Monocytes % (Manual) 8.0 H (0.0-7.3) % Seg Neutrophils # Man 24.2 H (1.8-7.7) K/mm3 Lymphocytes # (Manual) 0.0 L (1.2-5.4) K/mm3 Monocytes # (Manual) 2.1 H (0.0-0.8) K/mm3 Crossmatch See Detail
[2021-02-25] MEDS: FERROUS SULFATE 325 MG TAB PO SCH (10:23)
[2021-02-25] MEDS: levETIRAcetam 500 MG TAB PO SCH ×3 (10:24→21:31)
[2021-02-25] MEDS: PRENATAL VIT27-FE FUMARATE-FOLIC ACID VIT TAB PO SCH (10:24)
--- NOTE | 2021-02-25 12:28 | Electrocardiograph Report ---
[facility] Test Date: 2021-02-25 Test Time: 10:02:47 Pat Name: JESSE HAMEED Department: Room: 2132 1 Gender: F Recruitment Officer: KALEB : 1990 Requested By: AZRA BERANRD Order Number: [id number] Reading MD: Roseann Dewey Measurements Intervals [place] Rate: 90 P: 25 WI: 147 QRS: 70 QRSD: 74 T: 10 QT: 341 QTc: 417 Interpretive Statements Sinus rhythm Atrial premature complex No previous ECG available for comparison Electronically Signed On 02-25-2021 12:28:28 EDT by Roseann Dewey
--- NOTE | 2021-02-25 17:45 | Consultation ---
History of Present Illness - Reason for Consult Consult date: 02/25/21 - History of Present Illness 30-year-old female G5, P4 presented to hospital with heavy vaginal bleeding, resolved on presentation to the hospital. She underwent a for placenta previa. Infectious disease consulted for leukocytosis and tachycardia. Afebrile since admission with a white count of 26.3, it was 40.1 yesterday and 13.7 the day before that. She has been monitored persistently tachycardic throughout the admission, though today she is improved. All routine infectious disease screening negative, Covid PCR negative. Blood and urine cultures no growth so far. Imaging personally reviewed: Chest x-ray: No acute findings Review of Systems: Bold if positive, otherwise negative General: fevers, chills, rigors HEENT: visual disturbance, diplopia, eye pain Respiratory: cough, sputum, hemoptysis, shortness of breath Cardiovascular: chest pain, syncope Gastrointestinal: nausea, vomiting, diarrhea, abdominal pain Genitourinary: dysuria, hematuria, flank pain Musculoskeletal: neck pain, back pain, joint pain, edema Neurologic: headaches, seizures Hematologic: easy bruising or bleeding Endocrine: night sweats, acute weight loss Skin: rash, jaundice, redness Psychiatric: suicidal, homicidal ideation Past History Social history: no significant social history Medications and Allergies Allergies Allergy/AdvReac Type Severity Reaction Status Date / Time No Known Allergies Allergy Verified 12/15/14 04:50 Home Medications Medication Instructions Recorded Confirmed Last Taken Type levETIRAcetam [Keppra TAB] 500 mg PO BID 30 Days tablet 12/15/14 02/07/17 02/06/17 20:30 Rx Ferrous Sulfate [Feosol 325 MG tab] 325 mg PO BID #60 tablet 02/07/17 Unknown R x Folic Acid [Folvite] 1 mg PO QDAY 02/07/17 02/07/17 02/07/17 History Ibuprofen [Motrin 800 MG tab] 800 mg PO Q6H PRN #30 tablet 02/07/17 Unknown Rx Vit-Fe Fumar-FA [ 1 tab PO QDAY 02/07/17 02/07/17 02/07/17 History Vitamin] oxyCODONE /ACETAMINOPHEN [Percocet 1 - 2 tab PO Q4H PRN #30 tablet 02/07/17 Unknown Rx 5/325 mg] Ibuprofen [Motrin] 800 mg PO Q8HR PRN 21 Days #40 02/23/21 Unknown Rx tablet oxyCODONE /ACETAMINOPHEN [Percocet 1 tab PO Q4HR PRN 21 Days #30 tab 02/23/21 Unknown Rx 5/325] Active Meds: Active Medications Acetaminophen (Acetaminophen 325 Mg Tab) 650 mg PO Q4H PRN PRN Reason: Pain, Mild (1-3) Fentanyl (Fentanyl 100 Mcg/2 Ml Inj) 100 mcg IV Q2H PRN PRN Reason: Pain,Severe (7-10) LABOR PAIN Ferrous Sulfate (Ferrous Sulfate 325 Mg Tab) 325 mg PO QDAY [facility] Last Admin: 02/25/21 10:23 Dose: 325 mg Documented by: Hydrocortisone Acetate (Hydrocortisone 25 Mg Rectal Supp) 25 mg OR BID PRN PRN Reason: Hemorrhoids Hydromorphone HCl (Hydromorphone 1 Mg/1 Ml Inj) 0.5 mg IV Q4H PRN PRN Reason: breakthrough pain > 7/10 Last Admin: 02/24/21 01:00 Dose: 0.5 mg Documented by: Lactated Ringer's (Lactated Ringers) 1,000 mls @ 125 mls/hr IV DIRECT DEYSI Last Admin: 02/23/21 14:38 Dose: 125 mls/hr Documented by: Magnesium Sulfate (Magnesium Sulfate 40gm/1000ml) 40 gm in 1,000 mls @ 50 mls/hr IV DIRECT DEYSI Last Admin: 02/23/21 18:33 Dose: 2 gm/hr, 50 mls/hr Documented by: Oxytocin/Sodium Chloride (Pitocin/Ns 30 Unit/500ml) 30 units in 500 mls @ 40 mls/hr IV TITR DEYSI; Protocol Ibuprofen (Ibuprofen 600 Mg Tab) 600 mg PO Q6H PRN PRN Reason: Pain, Mild (1-3) Ibuprofen (Ibuprofen 800 Mg Tab) 800 mg PO Q6H PRN PRN Reason: Pain, Moderate (4-6) Last Admin: 02/25/21 17:38 Dose: 800 mg Documented by: Levetiracetam (Levetiracetam 500 Mg Tab) 500 mg PO BID [facility] Last Admin: 02/25/21 10:24 Dose: 500 mg Documented by: Magnesium Hydroxide (Magnesium Hydroxide (Mom) Oral Liqd Udc) 30 ml PO QHS PRN PRN Reason: Constip Unrelieved By Senna Morphine Sulfate (Morphine 4 Mg/1 Ml Inj) 4 mg IV Q4H PRN PRN Reason: Pain , Severe (7-10) Multi-Ingredient Ointment (Lanolin/Zinc/Dimethicone (Lansinoh) 7 Gm) 1 applic TP PRN PRN PRN Reason: dryness/cracking Multivitamins/Iron/Calcium ( [id number] Fumarate-Folic Acid Vit Tab) 1 each PO QDAY [facility] Last Admin: 02/25/21 10:24 Dose: 1 each Documented by: Nalbuphine HCl (Nalbuphine 10 Mg/1 Ml Inj) 10 mg IV Q2H PRN PRN Reason: Pain, Moderate (4-6) Naloxone HCl (Naloxone 0.4 Mg/1 Ml Inj) 0.2 mg IV Q2MIN PRN PRN Reason: Res Rate </= 8 or 02 SAT < 92% Nifedipine (Nifedipine*For Tocolysis Only* 10 Mg Capsule) 10 mg PO Q6H [facility]; Protocol Ondansetron HCl (Ondansetron 4 Mg/2 Ml Inj) 4 mg IV Q8H PRN PRN Reason: Nausea And Vomiting Oxycodone/Acetaminophen (Oxycodone /Acetaminophen 5-325mg Tab) 2 tab PO Q6H PRN PRN Reason: Pain, Moderate (4-6) Last Admin: 02/25/21 05:04 Dose: 2 tab Documented by: Simethicone (Simethicone 80 Mg Chew Tab) 80 mg PO Q6H PRN PRN Reason: Gas pain Sodium Chloride (Sodium Chloride 0.9% 10 Ml Flush Syringe) 10 ml IV PRN PRN PRN Reason: LINE FLUSH Witch Marry/Glycerin (Witch Marry/ Glycerin Pad) 1 each TP PRN PRN PRN Reason: Hemorrhoids/cleansing/soothing Physical Examination - Physical Exam Narrative exam: Physical Exam: Constitutional: Alert, cooperative. No acute distress Head, Ears, Nose: Normocephalic, atraumatic. External ears, nose normal Eyes: Conjunctivae/corneas clear. No icterus. No ptosis. Neck: Supple, no meningeal signs Oral: dentition fair, no thrush Cardiovascular: S1, S2 normal. Respiratory: Good air entry, clear to auscultation bilaterally GI: Soft, non-tender; bowel sounds normal. No peritoneal signs. Musculoskeletal: No pedal edema, no cyanosis. Skin: No rash or abscess Hem/Lymphatic: No palpable cervical or supraclavicular nodes. No lymphangitis Psych: Mood ok. Affect normal Neurological: Awake, alert, oriented. No gross abnormality - Constitutional Vitals: Vital Signs Temp Pulse Resp BP Pulse Ox 98.1 F 101 H 18 104/54 99 02/25/21 15:40 02/25/21 15:40 02/25/21 15:40 02/25/21 15:40 02/25/21 15:40 Temperature -Last 24 Hours Temperature 98.1 F Temperature 98.0 F Temperature 98.8 F Temperature 98.6 F Temperature 98.0 F Results - Labs CBC & Chem 7: 02/24/21 17:14 02/23/21 07:10 Labs: Abnormal lab results 02/23/21 02/24/21 Range/Units 07:17 17:14 WBC 26.3 H (4.5-11.0) K/mm3 RBC 2.33 L (3.65-5.03) M/mm3 Hgb 7.1 L (10.1-14.3) gm/dl Hct 21.5 L (30.3-42.9) % Seg Neuts % (Manual) 92.0 H (40.0-70.0) % Monocytes % (Manual) 8.0 H (0.0-7.3) % Seg Neutrophils # Man 24.2 H (1.8-7.7) K/mm3 Lymphocytes # (Manual) 0.0 L (1.2-5.4) K/mm3 Monocytes # (Manual) 2.1 H (0.0-0.8) K/mm3 Crossmatch See Detail Assessment and Plan Cultures: Blood culture no growth so far Urine culture no growth so far A/P: 30-year-old female past medical history seizures presented with presented with placenta previa, now with leukocytosis #SIRS/sepsis: With tachycardia and leukocytosis. Unclear source at present. No fevers to speak of during the admission. Urinalysis not concerning. Blood cultures pending. No concerning discharge at present. #Placenta previa: s/p . Recs: -Possible leukemoid reaction secondary to her surgery. It is improving at present. Likely too soon for pos-operative infection -Appears amp/gent/clinda were only given once -Started Unasyn empirically while cultures pending. Thank you for the consult, we will continue to follow. Bessy Hale MD [facility] ([facility]) O: [phone] F: [phone]
[2021-02-25] MEDS ORDERED: AMPICILLIN/SULBACTA 1.5GM/50ML 1.5 GM/50 ML BAG IV SCH (18:00)
[2021-02-25] MEDS: AMOXICILLIN/K CLAV 875/125MG TAB PO SCH (21:31)
[2021-02-26] MEDS: oxyCODONE /ACETAMINOPHEN 5-325MG TAB PO PRN (02:21)
[2021-02-26] MEDS: PRENATAL VIT27-FE FUMARATE-FOLIC ACID VIT TAB PO SCH (09:35)
[2021-02-26] MEDS: FERROUS SULFATE 325 MG TAB PO SCH (09:36)
[2021-02-26] MEDS: levETIRAcetam 500 MG TAB PO SCH ×2 (09:36→21:23)
[2021-02-26] MEDS: AMOXICILLIN/K CLAV 875/125MG TAB PO SCH ×2 (09:36→21:23)
[2021-02-26] MEDS: IBUPROFEN 800 MG TAB PO PRN ×3 (09:39→23:30)
--- NOTE | 2021-02-26 14:17 | Event Note ---
Date: 02/26/21 Came to see patient for rounds. Patient not in her room at this time. Will try again at a later time.
--- NOTE | 2021-02-26 16:50 | Progress Note ---
Assessment and Plan A: /postop day 3 S/P repeat C/S. Leukocytosis, being followed by ID. Taking antibiotics. Anemia. Seizure disorder, taking Keppra. P: Continue antibiotics. Continue iron supplementation. ID following. Routine /postop care. Patient to remove dressing in shower today. Subjective - Subjective Date of service: 02/26/21 Principal diagnosis: /postop day 3 S/P repeat C/S Interval history: Being seen by ID. Has leukocytosis. Patient is on Augmentin. Patient reports: appetite normal, voiding normally, pain well controlled, flatus, ambulating normally, no dizzy ambulation, no nauseated : doing well Objective - Vital Signs Latest vital signs: Vital Signs Temp Pulse Resp BP Pulse Ox Pulse Ox 02/26/21 09:39 16 02/26/21 08:15 100 02/26/21 07:52 98.0 F 85 18 109/61 99 02/25/21 23:00 98.3 F 94 H 20 114/61 98 02/25/21 21:30 97 Intake and Output 02/26/21 02/26/21 02/26/21 07:59 15:59 23:59 Intake Total 360 480 Balance 360 480 Intake: Oral 360 480 Other: Total, Intake Amount 120 240 # Voids Void 1 1 - Exam Cardiovascular: Present: Regular rate Lungs: Present: Clear to auscultation Abdomen: Present: normal appearance, soft, normal bowel sounds. Absent: distention, tenderness, guarding, rigidity Uterus: Present: normal, firm, fundal height below umbilicus. Absent: bogginess, tenderness Extremities: Present: normal. Absent: tenderness, edema Incision: Present: dry, dressed - Labs Labs: Abnormal lab results 02/23/21 Range/Units 07:17 Crossmatch See Detail
[2021-02-27] MEDS: IBUPROFEN 800 MG TAB PO PRN ×2 (06:28→22:04)
[2021-02-27 06:31] LABS: Basophils % (Auto) 0.1 % (0.0-1.8); Eosinophils # (Auto) 0.1 K/mm3 (0.0-0.4); Eosinophils % (Auto) 0.5 % (0.0-4.3); Lymphocytes # (Auto) 2.9 K/mm3 (1.2-5.4); Lymphocytes % (Auto) 17.4 % (13.4-35.0); Mean Corpuscular HGB Conc 34 % (30-34); Mean Corpuscular Volume 93 fl (79-97); Monocytes # (Auto) 1.6 K/mm3 (0.0-0.8); Monocytes % (Auto) 9.5 % (0.0-7.3); Platelet Count 261 K/mm3 (140-440); Red Cell Distribution Width 14.5 % (13.2-15.2)
[2021-02-27 06:40] LABS: Hematocrit 16.8 % (30.3-42.9); Hemoglobin 5.7 gm/dl (10.1-14.3)
[2021-02-27] MEDS ORDERED: SODIUM CHLORIDE 0.9% 500 ML 500 ML IV NR (06:52)
--- NOTE | 2021-02-27 07:01 | Event Note ---
Date: 02/27/21 Hemglobin 5.7; hematocrit 16.8. Abdomen mildly distended. Small amount of lochia. Fundus firm. CT abdomen and pelvis ordered. Will transfuse 2 units of PRBCs. Consulted with Dr. Varela re: this patient. Informed patient's nurse re: above. Spoke with patient re: plan of care and patient agrees to CT and blood transfusion.
--- NOTE | 2021-02-27 08:21 | Ultrasound Report ---
ULTRASOUND OB TRANSVAGINAL HISTORY: Vaginal bleeding TECHNIQUE: Transvaginal ultrasound with color Doppler imaging FINDINGS: This requisition is just presented to me for interpretation because the technologist did no t complete the examination in [facility]. This examination was dictated along with ULTRASOUND OB FOLLOW -UP performed 02/23/2021. Please refer to that report. Signer Name: Joe Deluna Jr, MD Signed: 02/27/2021 8:16 AM Workstation Name: [id number]
--- NOTE | 2021-02-27 09:11 | Cat Scan Report ---
CT ABDOMEN AND PELVIS WITH CONTRAST INDICATION / CLINICAL INFORMATION: severe anemia OMNI 300 100 ML. TECHNIQUE: Axial CT images were obtained through the abdomen and pelvis after 100 cc Omnipaque 300 IV contrast. Sagittal and coronal reformatted images. All CT scans at this location are performed using CT dose re duction for ALARA by means of automated exposure control. COMPARISON: Ultrasound OB 02/23/2021 FINDINGS: LOWER CHEST: No significant abnormality. LIVER: The liver is normal size with no evidence of parenchymal disease. There is a 1.3 cm focus of e nhancement in the left hepatic lobe which is incompletely characterized on this exam but probably rep resents a small cavernous hemangioma. [address] or MRI with contrast could be obtained to further ev aluate if needed. GALLBLADDER: There appears to be a large noncalcified gallstone measuring up to 1.9 cm in the proxima l gallbladder. No abnormal distention, wall thickening or surrounding fluid. BILE DUCTS: No significant abnormality. PANCREAS: No significant abnormality. SPLEEN: No significant abnormality. ADRENALS: No significant abnormality. RIGHT KIDNEY and URETER: No significant abnormality. LEFT KIDNEY and URETER: No significant abnormality. STOMACH and SMALL BOWEL: No significant abnormality. COLON: There is mild fecal retention throughout the colon. No obstruction or focal inflammation. APPENDIX: No significant abnormality. PERITONEUM: No free fluid. No free air. No fluid collection. LYMPH NODES: No significant adenopathy. AORTA and ARTERIES: No significant abnormality. IVC and VEINS: No significant abnormality. URINARY BLADDER: No significant abnormality. REPRODUCTIVE ORGANS: The uterus is enlarged and anteverted measuring 18.4 cm in length. Hemorrhagic p roducts are suspected in the lower uterine segment on the precontrast images suggesting mild uterine bleeding. There appears to be an adjacent blush of contrast in the lower left lateral uterine wall on the postcontrast images. This presumably represents the site of hemorrhage. This is best demonstrate d on axial images 140-160, series 5. No obvious intrauterine is detected on CT. This may re present a uterus. The adnexa are unremarkable. ADDITIONAL FINDINGS: None. SKELETAL SYSTEM: No significant abnormality. IMPRESSION: There are mild degree of hemorrhagic products in the endometrial canal and to a greater extent the l ower uterine segment consistent with hemorrhage within the uterus. This appears to be originating fro m the left lower uterine wall as described. Mild constipation. Probable 1.3 cm cavernous hemangioma the left hepatic lobe. Cholelithiasis. Signer Name: Joe Deluna Jr, MD Signed: 02/27/2021 9:07 AM Workstation Name: [id number]
--- NOTE | 2021-02-27 11:14 | Progress Note ---
Assessment and Plan Cultures: 02/23/2021 urine culture: No growth 02/24/2021 blood culture: No growth A/P: 30-year-old female past medical history seizures presented with presented with placenta previa, now with leukocytosis #SIRS/sepsis, leukemoid reaction: probably due to anemia. No source of infection identified, no fever. #Placenta previa: s/p . #Acute blood loss anemia: uterine hemorrage noted on CT. Management per primary team. Recs: -leucocytosis likely reactive to surgery and blood loss anemia -stop abx tomorrow if she remains afebrile Stephen Hatch MD, FACP [facility] O: [phone] F: [phone] Subjective Date of service: 02/27/21 Principal diagnosis: /postop day 3 S/P repeat C/S Interval history: Afebrile. WBC down to 16.6. Labs show significant anemia with hemoglobin of 5.7. CT abdomen pelvis today showed mild degree of hemorrhagic products in the endometrial canal and hemorrhage possibly originating from left lower uterine wall. Has no specific complaints. Getting PRBC transfusion. Objective - Exam Narrative Exam: Physical Exam: Constitutional: Alert, cooperative. No acute distress Head, Ears, Nose: Normocephalic, atraumatic. External ears, nose normal Eyes: Conjunctivae/corneas clear. No icterus. No ptosis. Neck: Supple, no meningeal signs Cardiovascular: S1, S2 + Respiratory: Good air entry, clear to auscultation bilaterally GI: Mild lower abdominal tenderness, bowel sounds present. Musculoskeletal: No pedal edema, no cyanosis. Skin: No rash or abscess Hem/Lymphatic: No palpable cervical or supraclavicular nodes. No lymphangitis Psych: Mood ok. Affect normal Neurological: Awake, alert, oriented. No gross abnormality - Constitutional Vitals: Vital Signs Temp Pulse Resp BP Pulse Ox 98.4 F 84 20 105/55 99 02/27/21 08:23 02/27/21 08:23 02/27/21 08:23 02/27/21 08:23 02/27/21 08:23 Temperature -Last 24 Hours Temperature 98.4 F Temperature 98.3 F Temperature 98.0 F - Labs CBC & Chem 7: 02/27/21 05:55 02/23/21 07:10 Labs: Abnormal lab results 02/23/21 02/27/21 02/27/21 Range/Units 07:17 05:55 08:00 WBC 16.6 H (4.5-11.0) K/mm3 RBC 1.80 L (3.65-5.03) M/mm3 Hgb 5.7 L* (10.1-14.3) gm/dl Hct 16.8 L* (30.3-42.9) % [place] % (Auto) 9.5 H (0.0-7.3) % [place] # (Auto) 1.6 H (0.0-0.8) K/mm3 Seg Neutrophils % 72.5 H (40.0-70.0) % Seg Neutrophils # 12.0 H (1.8-7.7) K/mm3 Crossmatch See Detail See Detail
[2021-02-27] MEDS: levETIRAcetam 500 MG TAB PO SCH ×2 (11:31→22:05)
[2021-02-27] MEDS: AMOXICILLIN/K CLAV 875/125MG TAB PO SCH ×2 (11:31→22:05)
--- NOTE | 2021-02-27 12:04 | Progress Note ---
Assessment and Plan A: S/P Repeat LTCS S/P Placenta previa with partial separation PPH requiring transfusion (hgb 5.7 hct 16.8) Leukocytosis and tachycardia ( Likely r/t surgery and anemia per ID) Uterine hemorrhage noted on CT scan Seizure disorder P: Continue routine pp care Stop abt tomm if remains afebrile per ID Dr James notified of uterine hemorrhage on CT scan Administer PRBCs as ordered and cont Fe OOB with assistance D/c home within 24-48hr if stable and cleared by MD Subjective - Subjective Date of service: 02/27/21 Principal diagnosis: /postop day 3 S/P repeat C/S Patient reports: appetite normal, voiding normally, pain well controlled, flatus, ambulating normally, other (Pt denies dizziness, weakness, or fatigue) : doing well Objective - Vital Signs Latest vital signs: Vital Signs Temp Pulse Resp BP Pulse Ox Pulse Ox 02/27/21 11:36 98.3 F 93 H 22 108/37 02/27/21 11:21 98.1 F 93 H 20 115/56 100 02/27/21 08:23 98.4 F 84 20 105/55 99 02/27/21 00:47 98.3 F 92 H 18 114/57 100 02/26/21 21:23 100 02/26/21 17:20 16 02/26/21 16:04 98.0 F 90 18 108/55 100 Intake and Output 02/26/21 02/27/21 02/27/21 22:59 06:59 14:59 Intake Total 600 480 120 Balance 600 480 120 Intake: Oral 360 120 120 Intake, Free Water 240 360 Blood Product 0 Leukoreduced Red Blood 0 Cells Unit [id number] Other: Total, Intake Amount 120 120 120 # Voids Void 1 2 1 - Exam Breasts: Present: normal Abdomen: Present: normal appearance, soft, normal bowel sounds Vulva: both: normal Uterus: Present: normal, firm, fundal height below umbilicus Extremities: Present: normal Incision: Present: normal, dry, intact - Labs Labs: Abnormal lab results 02/27/21 02/27/21 Range/Units 05:55 08:00 WBC 16.6 H (4.5-11.0) K/mm3 RBC 1.80 L (3.65-5.03) M/mm3 Hgb 5.7 L* (10.1-14.3) gm/dl Hct 16.8 L* (30.3-42.9) % [place] % (Auto) 9.5 H (0.0-7.3) % [place] # (Auto) 1.6 H (0.0-0.8) K/mm3 Seg Neutrophils % 72.5 H (40.0-70.0) % Seg Neutrophils # 12.0 H (1.8-7.7) K/mm3 Crossmatch See Detail
[2021-02-27] MEDS: PRENATAL VIT27-FE FUMARATE-FOLIC ACID VIT TAB PO SCH (12:43)
[2021-02-27] MEDS: FERROUS SULFATE 325 MG TAB PO SCH (12:43)
--- NOTE | 2021-02-27 14:23 | Consultation ---
History of Present Illness - Reason for Consult Consult date: 02/27/21 hemorrhage Requesting physician: PAULINE CONCEPCION - History of Present Illness 30-year-old at 30w4d (CHERIE 05/01/21) with care at [facility] in [place], [place] c/b Seizure d/o on Keppra (no recent seizures) send from the EMS with heavy vaginal bleeding that started at 5 AM with blood into the toilet bowl and on the pad. When arriving to the hospital no further blood was on the current peripad without active vaginal bleeding. Patient reports active fetus without leakage of fluid. Denies prior history of vaginal bleeding. Denies PIH symptoms. Patient presented on 02/23/2021 and had a performed later that day. - Section Preop diagnosis: repeat , other (complete previa) Postop diagnosis: same (and previa with partial separation) section procedure: repeat low transverse Complications: transfusion, intra-op hemorrhage, uterine atony, other (possible 2x2cm placental tissue absent from previa) Narrative: Date: 02/23/21 Surgeon: Pauline Concepcion MD Preop Dx: IUP at 30.3wks, no care, H/O C/section x2, complete placenta previa, active hemorrhage Postop Dx: same Procedure : Emergent repeat section Anesthesia: General Intake: 1800cc crystalloids and 2units PRBC uncrossmatched blood Output: 300cc clear urine EBL:1600cc She required uterine artery ligation during the procedure to control bleeding which worked in her bleeding was minor. She equilibrated over the next few days and today her hemoglobin is 5.6 and she is actively being transfused. Patient denies any heavy vaginal bleeding, or any abdominal pain. She is more focused on the discomfort of venipunctures than anything else. Past Medical History: seizure (on meds, no recent seizures) Past Surgical History: section (x2) Family/Genetic History: none Social history: no significant social history Expected Date of Delivery: 05/01/21 Actual Gestation: 30 Week(s) 3 Day(s) : 5 Para: 4 Hx # Term Pregnancies: 4 Number of Living Children: 4 Past History Social history: no significant social history Medications and Allergies Allergies Allergy/AdvReac Type Severity Reaction Status Date / Time No Known Allergies Allergy Verified 12/15/14 04:50 Home Medications Medication Instructions Recorded Confirmed Last Taken Type levETIRAcetam [Keppra TAB] 500 mg PO BID 30 Days tablet 12/15/14 02/27/21/11/17 20:30 Rx Ferrous Sulfate [Feosol 325 MG tab] 325 mg PO BID #60 tablet 02/07/17 02/27/21 Unknown Rx Folic Acid [Folvite] 1 mg PO QDAY 02/07/17 02/27/21 02/07/17 History Ibuprofen [Motrin 800 MG tab] 800 mg PO Q6H PRN #30 tablet 02/07/17 02/27/21 Unknown Rx Vit-Fe Fumar-FA [ 1 tab PO QDAY 02/07/17 02/27/21 02/07/17 History Vitamin] oxyCODONE /ACETAMINOPHEN [Percocet 1 - 2 tab PO Q4H PRN #30 tablet 02/07/17 02/27/21 Unknown Rx 5/325 mg] Ibuprofen [Motrin] 800 mg PO Q8HR PRN 21 Days #40 02/23/21 Unknown Rx tablet oxyCODONE /ACETAMINOPHEN [Percocet 1 tab PO Q4HR PRN 21 Days #30 tab 02/23/21 Unknown Rx 5/325] Active Meds: Active Medications Acetaminophen (Acetaminophen 325 Mg Tab) 650 mg PO Q4H PRN PRN Reason: Pain, Mild (1-3) Amoxicillin/Clavulanate Potassium (Amoxicillin/K Clav 875/125mg Tab) 1 each PO Q12HR [facility] Last Admin: 02/27/21 11:31 Dose: 1 each Documented by: Fentanyl (Fentanyl 100 Mcg/2 Ml Inj) 100 mcg IV Q2H PRN PRN Reason: Pain,Severe (7-10) LABOR PAIN Ferrous Sulfate (Ferrous Sulfate 325 Mg Tab) 325 mg PO QDAY [facility] Last Admin: 02/27/21 12:43 Dose: 325 mg Documented by: Hydrocortisone Acetate (Hydrocortisone 25 Mg Rectal Supp) 25 mg NE BID PRN PRN Reason: Hemorrhoids Hydromorphone HCl (Hydromorphone 1 Mg/1 Ml Inj) 0.5 mg IV Q4H PRN PRN Reason: breakthrough pain > 7/10 Last Admin: 02/24/21 01:00 Dose: 0.5 mg Documented by: Lactated Ringer's (Lactated Ringers) 1,000 mls @ 125 mls/hr IV DIRECT DEYSI Last Admin: 02/23/21 14:38 Dose: 125 mls/hr Documented by: Magnesium Sulfate (Magnesium Sulfate 40gm/1000ml) 40 gm in 1,000 mls @ 50 mls/hr IV DIRECT DEYSI Last Admin: 02/23/21 18:33 Dose: 2 gm/hr, 50 mls/hr Documented by: Oxytocin/Sodium Chloride (Pitocin/Ns 30 Unit/500ml) 30 units in 500 mls @ 40 mls/hr IV TITR DEYSI; Protocol Sodium Chloride (Nacl 0.9% 500 Ml) 500 mls @ 0 mls/hr IV ONCE NR Stop: 02/27/21 20:00 Last Admin: 02/27/21 10:55 Dose: 40 mls/hr Documented by: Ibuprofen (Ibuprofen 600 Mg Tab) 600 mg PO Q6H PRN PRN Reason: Pain, Mild (1-3) Ibuprofen (Ibuprofen 800 Mg Tab) 800 mg PO Q6H PRN PRN Reason: Pain, Moderate (4-6) Last Admin: 02/27/21 06:28 Dose: 800 mg Documented by: Levetiracetam (Levetiracetam 500 Mg Tab) 500 mg PO BID [facility] Last Admin: 02/27/21 11:31 Dose: 500 mg Documented by: Magnesium Hydroxide (Magnesium Hydroxide (Mom) Oral Liqd Udc) 30 ml PO QHS PRN PRN Reason: Constip Unrelieved By Senna Morphine Sulfate (Morphine 4 Mg/1 Ml Inj) 4 mg IV Q4H PRN PRN Reason: Pain , Severe (7-10) Multi-Ingredient Ointment (Lanolin/Zinc/Dimethicone (Lansinoh) 7 Gm) 1 applic TP PRN PRN PRN Reason: dryness/cracking Multivitamins/Iron/Calcium ( [id number] Fumarate-Folic Acid Vit Tab) 1 each PO QDAY [facility] Last Admin: 02/27/21 12:43 Dose: 1 each Documented by: Nalbuphine HCl (Nalbuphine 10 Mg/1 Ml Inj) 10 mg IV Q2H PRN PRN Reason: Pain, Moderate (4-6) Naloxone HCl (Naloxone 0.4 Mg/1 Ml Inj) 0.2 mg IV Q2MIN PRN PRN Reason: Res Rate </= 8 or 02 SAT < 92% Nifedipine (Nifedipine*For Tocolysis Only* 10 Mg Capsule) 10 mg PO Q6H DEYSI; Protocol Ondansetron HCl (Ondansetron 4 Mg/2 Ml Inj) 4 mg IV Q8H PRN PRN Reason: Nausea And Vomiting Oxycodone/Acetaminophen (Oxycodone /Acetaminophen 5-325mg Tab) 2 tab PO Q6H PRN PRN Reason: Pain, Moderate (4-6) Last Admin: 02/26/21 02:21 Dose: 2 tab Documented by: Simethicone (Simethicone 80 Mg Chew Tab) 80 mg PO Q6H PRN PRN Reason: Gas pain Sodium Chloride (Sodium Chloride 0.9% 10 Ml Flush Syringe) 10 ml IV PRN PRN PRN Reason: LINE FLUSH Witch Marry/Glycerin (Witch Marry/ Glycerin Pad) 1 each TP PRN PRN PRN Reason: Hemorrhoids/cleansing/soothing Review of Systems All systems: negative (see HPI) Exam - Constitutional Vitals: Temp Pulse Resp BP Pulse Ox 98 F 84 20 119/62 100 02/27/21 14:07 02/27/21 14:07 02/27/21 14:07 02/27/21 14:07 02/27/21 14:20 General appearance: Present: no acute distress - EENT Eyes: Present: EOM intact ENT: hearing intact - Respiratory Respiratory effort: normal - Extremities Extremities: normal temperature, normal color - Abdominal General gastrointestinal: Present: soft, non-tender - Psychiatric Psychiatric: appropriate mood/affect, cooperative Results - Labs CBC & Chem 7: 02/27/21 05:55 02/23/21 07:10 Labs: Abnormal lab results 02/27/21 02/27/21 Range/Units 05:55 08:00 WBC 16.6 H (4.5-11.0) K/mm3 RBC 1.80 L (3.65-5.03) M/mm3 Hgb 5.7 L* (10.1-14.3) gm/dl Hct 16.8 L* (30.3-42.9) % [place] % (Auto) 9.5 H (0.0-7.3) % [place] # (Auto) 1.6 H (0.0-0.8) K/mm3 Seg Neutrophils % 72.5 H (40.0-70.0) % Seg Neutrophils # 12.0 H (1.8-7.7) K/mm3 Crossmatch See Detail - Imaging and Cardiology CT scan - abdomen: report reviewed, image reviewed Assessment and Plan 30-year-old female status post section requiring uterine artery ligation with complete placenta previa who has done well since surgery. Hemoglobin has equilibrated and is now 5.6, but there is no signs of active bleeding with only minor bleeding from the vagina. She has no significant abdominal pain. CT scan reviewed demonstrating no active extravasation with blood products within the uterus and vagina which is expected. Agree with transfusion. No plans for any interventional procedures. This was discussed with patient. Patient appears more fixated on venipunctures than her global health which is disconcerting. Tried to explain to patient that this should not be her fixation and instead she should focus on her overall health and care. Patient understands.
[2021-02-28] MEDS: FERROUS SULFATE 325 MG TAB PO SCH (09:45)
[2021-02-28] MEDS: AMOXICILLIN/K CLAV 875/125MG TAB PO SCH (09:45)
[2021-02-28] MEDS: PRENATAL VIT27-FE FUMARATE-FOLIC ACID VIT TAB PO SCH (09:45)
--- NOTE | 2021-02-28 09:57 | Progress Note ---
Assessment and Plan A: S/P Repeat LTCS Placenta previa with partial separation Severe asymptomatic anemia PPH Leukocytosis p: Continue routine pp orders Serial CBC per Dr Vincent Continue monitoring D/c home when pt is stable and cleared by Dr Vincent Subjective - Subjective Date of service: 02/28/21 Principal diagnosis: /postop day 3 S/P repeat C/S Patient reports: appetite normal, voiding normally, pain well controlled, flatus, ambulating normally, other (feeling well and denies c/o dizziness, sob, or fatigue) Hannah: in NICU Objective - Vital Signs Latest vital signs: Vital Signs Temp Pulse Resp BP BP Pulse Ox Pulse Ox 02/28/21 08:45 98.7 F 92 H 20 126/73 02/27/21 23:55 98.0 F 62 16 125/63 99 02/27/21 23:00 100 02/27/21 22:04 18 98 02/27/21 20:38 98.0 F 60 16 131/53 98 02/27/21 19:30 98 02/27/21 16:30 100 02/27/21 16:08 97.5 F L 75 18 128/72 99 02/27/21 15:44 98.2 F 74 20 120/68 02/27/21 15:40 97.9 F 67 20 114/61 02/27/21 15:14 97.9 F 79 20 107/60 100 02/27/21 14:44 98.9 F 85 22 117/66 02/27/21 14:20 100 02/27/21 14:14 99.2 F 88 21 110/55 02/27/21 14:07 98 F 84 20 119/62 100 02/27/21 13:59 99.2 F 88 21 110/55 100 02/27/21 13:46 98 F 78 20 120/68 100 02/27/21 13:35 97.6 F 91 H 22 105/87 100 02/27/21 13:06 98.3 F 91 H 20 120/58 02/27/21 12:36 98.6 F 87 20 104/50 100 02/27/21 12:09 100 02/27/21 12:06 98.9 F 82 20 110/52 02/27/21 11:53 98.1 F 76 20 109/50 95 02/27/21 11:36 98.3 F 93 H 22 108/37 02/27/21 11:21 98.1 F 93 H 20 115/56 100 02/27/21 10:11 100 Intake and Output 02/27/21 02/28/21 02/28/21 22:59 06:59 14:59 Intake Total 1989 400 320 Balance 1989 400 320 Intake: Oral 600 400 320 Intake, Free Water 1140 Blood Product 250 Leukoreduced Red Blood 250 Cells Unit [id number] Other: Total, Intake Amount 240 200 320 # Voids Void 1 1 1 # Bowel Movements 1 - Exam Breasts: Present: normal Abdomen: Present: normal appearance, soft, normal bowel sounds Vulva: both: normal Uterus: Present: normal, firm, fundal height below umbilicus Extremities: Present: normal Incision: Present: normal, dry, intact - Labs Labs: Abnormal lab results 02/23/21 02/27/21 Range/Units 17:55 08:00 Levetiracetam <1.0 L (12.0-46.0) mcg/mL Crossmatch See Detail
[2021-02-28 10:16] LABS: Basophils % (Auto) 0.1 % (0.0-1.8); Eosinophils # (Auto) 0.2 K/mm3 (0.0-0.4); Eosinophils % (Auto) 1.1 % (0.0-4.3); Hemoglobin 8.8 gm/dl (10.1-14.3); Lymphocytes # (Auto) 2.3 K/mm3 (1.2-5.4); Lymphocytes % (Auto) 14.6 % (13.4-35.0); Mean Corpuscular HGB Conc 35 % (30-34); Mean Corpuscular Volume 93 fl (79-97); Monocytes # (Auto) 1.3 K/mm3 (0.0-0.8); Monocytes % (Auto) 8.3 % (0.0-7.3); Platelet Count 295 K/mm3 (140-440); Red Blood Count 2.68 M/mm3 (3.65-5.03); Red Cell Distribution Width 14.6 % (13.2-15.2)
--- NOTE | 2021-02-28 11:37 | Event Note ---
Date: 02/28/21 H&H improved. VSS. Patient doing well with minimal expected vaginal bleeding. Okay for discharge from vascular perspective.
--- NOTE | 2021-02-28 13:11 | Progress Note ---
Assessment and Plan Cultures: 02/23/2021 urine culture: No growth 02/24/2021 blood culture: No growth A/P: 30-year-old female past medical history seizures presented with presented with placenta previa, now with leukocytosis #SIRS/sepsis, leukemoid reaction: probably due to anemia. No source of infection identified, no fever. #Placenta previa: s/p . #Acute blood loss anemia: uterine hemorrage noted on CT. Management per primary team. Recs: -leucocytosis likely reactive to surgery and blood loss anemia, and slowly downtrending -antibiotics discontinued Stephen Hatch MD, FACP [facility] O: [phone] F: [phone] Subjective Date of service: 02/28/21 Principal diagnosis: /postop day 3 S/P repeat C/S Interval history: Afebrile. WBC down to 15K. Got blood transfusions yesterday. No complaints. Objective - Exam Narrative Exam: Physical Exam: Constitutional: Alert, cooperative. No acute distress Head, Ears, Nose: Normocephalic, atraumatic. External ears, nose normal Eyes: Conjunctivae/corneas clear. No icterus. No ptosis. Neck: Supple, no meningeal signs Cardiovascular: S1, S2 + Respiratory: Good air entry, clear to auscultation bilaterally GI: Mild lower abdominal tenderness, bowel sounds present. Musculoskeletal: No pedal edema, no cyanosis. Skin: No rash or abscess Hem/Lymphatic: No palpable cervical or supraclavicular nodes. No lymphangitis Psych: Mood ok. Affect normal Neurological: Awake, alert, oriented. No gross abnormality - Constitutional Vitals: Vital Signs Temp Pulse Resp BP Pulse Ox 98.7 F 92 H 20 126/73 99 02/28/21 08:45 02/28/21 08:45 02/28/21 08:45 02/28/21 08:45 02/27/21 23:55 Temperature -Last 24 Hours Temperature 98.7 F Temperature 98.0 F Temperature 98.0 F Temperature 97.5 F Temperature 98.2 F Temperature 97.9 F Temperature 97.9 F Temperature 98.9 F Temperature 99.2 F Temperature 98 F Temperature 99.2 F Temperature 98 F Temperature 98.0 F Temperature 98.0 F Temperature 97.6 F - Labs CBC & Chem 7: 02/28/21 10:01 02/23/21 07:10 Labs: Abnormal lab results 02/23/21 02/27/21 02/28/21 Range/Units 17:55 08:00 10:01 WBC 15.9 H (4.5-11.0) K/mm3 RBC 2.68 L (3.65-5.03) M/mm3 Hgb 8.8 L D (10.1-14.3) gm/dl Hct 25.0 L D (30.3-42.9) % MCH 33 H (28-32) pg MCHC 35 H (30-34) % [place] % (Auto) 8.3 H (0.0-7.3) % [place] # (Auto) 1.3 H (0.0-0.8) K/mm3 Seg Neutrophils % 75.9 H (40.0-70.0) % Seg Neutrophils # 12.1 H (1.8-7.7) K/mm3 Levetiracetam <1.0 L (12.0-46.0) mcg/mL Crossmatch See Detail
[2021-02-28 15:54] VITALS: BP 131/67
--- NOTE | 2021-04-05 12:29 | Discharge Summary ---
Providers - Providers Date of Admission: 02/23/21 06:15 Date of discharge: 02/28/21 Attending physician: CORBY DEMPSEY JR, MD 02/24/21 00:55 Consult to Interventional Radiology [CONS] Urgent Consulting Provider: CLAIRE PUENTES Reason For Exam: hemorrhage, plac previa; c/s pod1 Place consult to:: radiology Notified:: via text to doctor Was contact made?: No 02/24/21 15:01 Consult to Physician [CONS] Urgent Comment: Consulting Provider: GUY SANTILLAN Physician Instructions: Reason For Exam: leukocytosis, tachycardia, postop Primary care physician: CORBY DEMPSEY JR, MD Hospitalization Delivery: Procedure: section complications: other (anemia) Discharge diagnosis: IUP at term delivered (csection.) Hospital course: pt followed for post op anemia. ready for d/c on 4th day post op. Disposition: HOME / SELF CARE / HOMELESS - Discharge Diagnoses (1) Vaginal bleeding during Status: Acute (2) Malpresentation of fetus Status: Acute Qualifiers: malpresentation type: breech Fetus number: single or unspecified fetus Qualified Code(s): O32.1XX0 - Maternal care for breech presentation, not applicable or unspecified Plan - Discharge Medications Prescriptions: Ibuprofen [Motrin] 800 mg PO Q8HR PRN 21 Days #40 tablet PRN Reason: Pain, Moderate (4-6) oxyCODONE /ACETAMINOPHEN [Percocet 5/325] 1 tab PO Q4HR PRN 21 Days #30 tab PRN Reason: Pain , Severe (7-10) - Provider Discharge Summary Activity: no heavy lifting 4 weeks, no strenuous exercise Diet: routine Instructions: routine Additional instructions: [] Smoking cessation referral if applicable(refer to patient education folder for contact #) [] Refer to [facility] Booklet Call your doctor immediately for: * Fever > 100.5 * Heavy vaginal bleeding ( >1 pad per hour) * Severe persistent headache * Shortness of breath * Reddened, hot, painful area to leg or breast * Drainage or odor from incision. * Keep incision clean and dry at all times and follow doctor's instructions re garding bathing/showering - Follow up plan
== END 2021-02-28 19:23 | disposition home or self-care (01) | DRG 765 ==
LOC: TRG 06:14 → LD 06:15 → TRG 09:16 → LD 02-24 00:19 → OB 02-24 08:46
PROVIDERS: ADMIT Obstetrics & Gynecology; ATTEND Obstetrics & Gynecology
PROC: 30233N1 Transfusion of Nonautologous Red Blood Cells into Peripheral Vein, Percutaneous Approach (ICD-10-PCS; principal; 2021-02-23)
PROC: 10D00Z1 Extraction of Products of Conception, Low, Open Approach (ICD-10-PCS; 2021-02-23)
DX: O44.13 Complete placenta previa with hemorrhage, third trimester (principal); O99.354 Diseases of the nervous system complicating childbirth; O72.1 Other immediate postpartum hemorrhage; D62 Acute posthemorrhagic anemia; Z3A.30 30 weeks gestation of pregnancy; Z37.0 Single live birth; Z20.822 Contact with and (suspected) exposure to COVID-19; O32.1XX0 Maternal care for breech presentation, not applicable or unspecified; O99.62 Diseases of the digestive system complicating childbirth; K21.9 Gastro-esophageal reflux disease without esophagitis; O90.81 Anemia of the puerperium; O99.893 Other specified diseases and conditions complicating puerperium; R00.0 Tachycardia, unspecified; G40.909 Epilepsy, unspecified, not intractable, without status epilepticus
CPT/HCPCS: 36415; 71046; 74018; 74178; 76816; 76817; 76819; 80053; 80177; 80307; 81001; 83735; 85007; 85025; 85379; 85384; 85460; 85610; 85730; 86592; 86706; 86762; 86803; 86850; 86900; 86901; 86920; 87040; 87086; 87591; 87806; 88307; 93005; 99211; G0378; G0463; J0330; J0690; J0702; J1170; J1580; J2370; J2405; J2704; J3475; J3490; J7040; J7120; P9016; Q9967; U0003